=== PATIENT | female | born 1940 | race Caucasian/White ===

== ENCOUNTER → 2025-05-26 | Outpatient (REF) | payer MEDICARE ==
[~2025-05-26] MED LIST: ACET-907 PO; BACI1TAB20 PO; C-251TAB PO; COQ10 PO; COQ150CH PO; FERR325T OR; GLUCOSAMINE SULFATE PO; GNP1000T11 PO; IBUP600T42 PO; MILKPOW PO; NICOTINE PATCH TOP; PERC5TAB8 OR; VALIUM PO; VIT1CAPS PO; VITAMIN C PO; [UNRECOGNIZED DRUG - OTHER] PO; [UNRECOGNIZED DRUG - OTHER] PO; [UNRECOGNIZED DRUG - OTHER] PO
[2025-05-26 18:45] LABS: APPEARANCE, URINE CLOUDY (CLEAR); BACTERIA, URINE AUTO NEGATIVE (NEGATIVE); BILIRUBIN, URINE AUTO NEGATIVE (NEGATIVE); BLOOD, URINE BLOOD 3+ (NEGATIVE); GLUCOSE, URINE (UA) AUTO NEGATIVE (NEGATIVE); KETONE, URINE AUTO NEGATIVE (NEGATIVE); LEUKOCYTE ESTERASE, URINE AUTO 2+ (NEGATIVE); MUCUS, URINE SMALL (NEGATIVE); NITRITE, URINE AUTO POSITIVE (NEGATIVE); PROTEIN, URINE AUTO 3+ mg/dL (NEGATIVE); RBC, URINE AUTO TNTC /HPF (0-3); SPECIFIC GRAVITY URINE AUTO 1.012 (1.002-1.035); SQUAMOUS EPITHELIAL CELL UR AU 0 /HPF (0-6); UROBILINOGEN, URINE AUTO 0.2 mg/dL (0.0-2.0); WBC, URINE AUTO TNTC /HPF (0-3)
== END ==
LOC: M SMT 17:37
PROVIDERS: ATTEND Urology
DX: R31.0 Gross hematuria (principal)

== ENCOUNTER 2025-06-11 06:00 | Day surgery (SDC) | payer MEDICARE ==
[~2025-06-11] VITALS: Ht 152.4 cm; Wt 63.0 kg
[2025-06-11] MEDS: LR 1,000 ML IV SCH (06:35)
[2025-06-11] MEDS ORDERED: LIDOCAINE 2% 100 MG/5 ML SDV (FOR ANES.) As Ordered ONE (07:12)
[2025-06-11] MEDS ORDERED: dexAMETHasone 4 MG/ML 1 ML VIAL As Ordered ONE (07:12)
[2025-06-11] MEDS ORDERED: SUGAMMADEX SODIUM 500 MG/5 ML VIAL As Ordered ONE (07:12)
[2025-06-11] MEDS ORDERED: KETOROLAC 30 MG/ML 1 ML VIAL As Ordered ONE (07:12)
[2025-06-11] MEDS ORDERED: ROCURONIUM BROMIDE 50MG/5ML VIAL As Ordered ONE (07:12)
[2025-06-11] MEDS ORDERED: ONDANSETRON 4MG/2ML VIAL As Ordered ONE (07:13)
[2025-06-11] MEDS: CIPROFLOXACIN 400 MG in IV 1 EA IV ONE (07:20)
[2025-06-11] MEDS: CIPROFLOXACIN/D5W 400 MG/200 ML BAG As Ordered ONE (07:44)
[2025-06-11] MEDS ORDERED: ACETAMINOPHEN 1000MG/100ML IV BAG As Ordered ONE (07:45)
[2025-06-11] MEDS ORDERED: PHENYLephrine 500MCG 5ML (100MCG/ML) SYRINGE As Ordered ONE (07:54)
[2025-06-11] MEDS ORDERED: LR 1,000 ML IV SCH (08:15)
[2025-06-11] MEDS ORDERED: HYDROMORPHONE HCL 0.5 MG/0.5 ML SYRINGE IV PRN (08:15)
[2025-06-11] MEDS ORDERED: ONDANSETRON 4MG/2ML VIAL IV PRN (08:15)
[2025-06-11] MEDS ORDERED: OXYB5TAB14 PO (08:18)
[2025-06-11] MEDS ORDERED: PYRI1TAB5 PO (08:18)
[2025-06-11] MEDS ORDERED: LEVO1TAB39 PO (08:18)
[2025-06-11 09:40] VITALS: BP 164/88; TEMP 97.1; O2SAT 100
== END 2025-06-11 10:12 | disposition home or self-care (01) ==
LOC: M SDC 06:00
PROVIDERS: ATTEND Urology
DX: N32.89 Other specified disorders of bladder (principal); R31.0 Gross hematuria; Z88.2 Allergy status to sulfonamides; Z91.048 Other nonmedicinal substance allergy status; E73.9 Lactose intolerance, unspecified; Z91.018 Allergy to other foods; Z79.899 Other long term (current) drug therapy
CPT/HCPCS: 52224; 88305; J0131; J0744; J1100; J1885; J2371; J2405; J3010